=== PATIENT | female | born 1950 | race Caucasian/White ===

== ENCOUNTER 2016-09-22 10:44 | Observation (INO) | payer BC, MEDICARE ==
[2016-09-22 10:11] LABS: BASO % 0.4 % (0-2); EOS % 4.3 % (0-7); EOSINOPHIL ABSOLUTE COUNT 0.2 tho/cmm (0.0-0.7); HCT-HEMATOCRIT 38.3 % (34.0-49.0); HGB-HEMOGLOBIN 12.4 gm/dl (12.0-15.5); IMMATURE GRANULOCYTES ABSOLUTE 0.01 tho/cmm (0-0.03); IMMATURE GRANULOCYTES PERCENT 0.2 % (0-0.3); LYMPH % 40.2 % (20-45); LYMPH ABSOLUTE COUNT 2.2 tho/cmm (0.8-4.5); MCH (MEAN CORPUSCULAR HGB) 30.4 pg (28.0-32.0); MCHC MEAN CORPUSCULAR HGB CONC 32.4 % (32.0-36.0); MCV (MEAN CELL VOLUME) 93.9 fl (82.0-96.0); MEAN PLATELET VOLUME 11.8 cmc (9.4-12.4); MONO % 9.1 % (0-12); MONOCYTE ABSOLUTE COUNT 0.5 tho/cmm (0.0-1.2); NEUTROPHIL ABSOLUTE COUNT 2.5 tho/cmm (1.6-8.0); NEUTROPHIL-AUTOMATED 2.5 tho/cmm (1.6-8.0); NEUTROPHILS % 45.8 % (40-80); PLATELET COUNT 204 tho/cmm (150-450); RED BLOOD COUNT 4.08 mil/cmm (4.00-5.20); RED CELL DISTRIBUTION WIDTH 14.2 % (12.4-16.4); WHITE BLOOD COUNT 5.4 tho/cmm (4.0-10.0)
[2016-09-22 10:24] LABS: ANION GAP 10 mmol/L (0-20); BLOOD UREA NITROGEN 12 mg/dl (6-24); CALCIUM 8.9 mg/dl (8.5-10.5); CARBON DIOXIDE-VENOUS 31 mmol/L (22-32); CHLORIDE 105 mmol/l (96-110); CREATININE 0.83 mg/dl (0.50-1.10); GLUCOSE 75 mg/dL (70-110); POTASSIUM 4.5 mmol/L (3.7-5.1); SODIUM 141 mmol/L (135-145); eGFR VALUE FOR BLACK 84 mL/Min
[~2016-09-22 10:44] MED LIST: CALCIUM + D T1 UDTAB PO; CALCIUM + VITA1 EAC4 PO; CYMBALTA60 M1 PO; CYMBALTA60 MG PO; FISH OIL 1,0001 EA10 PO; IMITREX; IMITREX SQ; IMITREX100 M2 PO; IMITREX50 MG PO; IMITREX6 MG/0.52 SC; LYRICA200 M1 PO; LYRICA50 MG PO; MELOXICAM15 M1 PO; MOBIC15 MG PO; MULTIPLE VITAM1 EAC3 PO; MULTIVITAMIN1 TAB PO; NORCO 5/3251 TAB PO; OMEPRAZOLE20 M3 PO; PREMPRO 0.45/1.1 TAB PO; PREMPRO 0.625-1 EAC1 PO; PRILOSEC OTC20 MG PO; SENNA-S TABLET1 EACH PO; SINEMET CR 21 TAB.SA PO; SINGULAIR10 M1 PO; SKELAXIN800 MG PO; TRAMADOL HCL50 MG PO; TUMS500 MG PO; TYLENOL325 MG PO; ULTRAM50 M1 PO; VITAMIN C PO; VITAMIN C1000 M1 PO; VITAMIN D31000 UNI3 PO; WELLBUTRIN100 M1 PO; XARELTO10 MG PO
== END 2016-09-23 11:55 ==
LOC: EDMED 10:44 → EMR2 14:24 → CAR1 16:30
PROVIDERS: Emergency Medicine; ADMIT Internal Medicine Interventional Cardiology
DX: R07.9 Chest pain, unspecified (principal); R55 Syncope and collapse; F32.9 Major depressive disorder, single episode, unspecified; G25.81 Restless legs syndrome; G43.909 Migraine, unspecified, not intractable, without status migrainosus; I07.1 Rheumatic tricuspid insufficiency; Z79.1 Long term (current) use of non-steroidal anti-inflammatories (NSAID); Z79.899 Other long term (current) drug therapy; Z88.1 Allergy status to other antibiotic agents; Z90.89 Acquired absence of other organs; Z98.890 Other specified postprocedural states
CPT/HCPCS: A9500; G0378